=== PATIENT | female | born 1980 | race Caucasian/White ===

== ENCOUNTER 2017-10-14 17:20 | Outpatient (CLI) | payer OTHER, SELFPAY ==
[2017-10-14 17:46] VITALS: BMI 19.8
[2017-10-14 18:32] LABS: Bacteria 0 SEEN /hpf (None Seen); Mucous, Urine 0 SEEN /hpf (<or=2+); White Blood Cells 0 SEEN /hpf (0-5)
[2017-10-14 18:33] LABS: Color, Urine Yellow (Yellow); Glucose, Dipstick Normal (Normal); Ketone-Dipstick 50 mg/dl (Negative); Leukocyte Esterase-Dipstick Negative /ul (Negative); Nitrite-Dipstick Negative (Negative); Occult Blood-Urine 50 /ul (Negative); Protein-Dipstick Negative (Negative); Urine Bilirubin Dipstick Negative (Negative); Urine Clarity Cloudy (Clear); Urine Urobilinogen Normal (Normal)
[2017-10-14 18:42] LABS: Red Blood Cells-Urine 0-5 SEEN /hpf (0-5); Squamous Epithelial Cells - UA 10-25 SEEN /hpf (5-10); Transitional Epithelial - Ur 0-5 SEEN /hpf (0-5)
--- NOTE | 2017-10-15 08:09 | OB.TRI.NOTE ---
History of Present Illness Date of Service: 10/14/17 Was patient seen by the physician?: No Reason For Visit: SPOTTING Date of Service: 10/14/17 Final MIC: 12/26/17 Final MIC Source: US <20 weeks Gestational age: 29 Weeks and 5 Days History of Present Illness: 37 yo [id number] female at 29 5/7 wk EGA with cough, URI. Called to report light spotting. H/O term C section after pushing 4 hrs. Pt given option of pelvic exam and sono in ofc or may come to L and D to check baby . Opted to come in for check and to r/o UTI. Home Medications Medication Instructions Recorded Vits [Prenatabs FA] 1 tablet PO DAILY 08/06/15 Allergies No Known Allergies Allergy (Verified 10/14/17 17:47) Physical Exam Vitals: UA negative. Sp Gr 1.005. 50 Occlut blood . NST - FHR Rate Baby A Baseline: 130-140 with avg variability. Accels to 160-170s Variability:: Moderate Accelerations:: 15 x 15 Decelerations:: None NST Reactive:: Yes, Appropriate for gestational age FHR Category:: Category I Uterine Activity:: irritability, rare UC Impression/Plan 29 5/7 wk , spotting. Likely friable cervix. UA neg except for scant micro hematuria Rest, tylenol prn for discomfort Call ofc as planned for sono and pelvic exam prn.
== END 2017-10-14 18:30 | disposition home or self-care (01) ==
LOC: WPOUT 17:41 → WP 17:42
PROVIDERS: Family Provider Nurse Practitioner; PCP Nurse Practitioner; Visit Provider Obstetrics & Gynecology
DX: O09.523 Supervision of elderly multigravida, third trimester (principal); O26.853 Spotting complicating pregnancy, third trimester; R31.9 Hematuria, unspecified; O99.513 Diseases of the respiratory system complicating pregnancy, third trimester; J06.9 Acute upper respiratory infection, unspecified; O34.219 Maternal care for unspecified type scar from previous cesarean delivery; Z3A.29 29 weeks gestation of pregnancy
CPT/HCPCS: 59025; 59050; 81001; 87086; 87088; 99218; G0378

== ENCOUNTER 2017-12-19 05:45 | Inpatient (IN) | payer OTHER, SELFPAY ==
[2017-12-18 13:30] VITALS: BMI 26.8
[2017-12-18 13:53] VITALS: BMI 28.2
[2017-12-18 14:15] LABS: Absolute Neutrophil Count 7.1 X10^3/uL (2.0-7.7); Basophil# 0.01 X10^3/uL; Basophil% 0.1 % (0-1); Eosinophil# 0.07 X10^3/uL; Eosinophils% 0.8 % (0-5); Hematocrit 33.8 % (37-47); Hemoglobin 11.7 g/dl (12.0-15.0); Lymphocyte % 16.2 % (19-41); Mean Corp Hgb Conc 34.6 g/gl (32-36); Mean Corpuscular Hgb 31.1 pg (27.0-32.0); Mean Corpuscular Volume 89.9 fL (81-99); Monocyte# 0.54 X10^3/uL; Monocyte% 5.8 % (0-10); Neutrophil # 7.12 X10^3/uL (2.7-7.7); Neutrophil % 76.9 % (47-70); Platelet Count 179 K/mm3 (150-450); RBC Distribution Width CV 13.1 % (11.6-14.6); RBC Distribution Width SD 41.9 fl (35.1-43.9); Red Blood Count 3.76 M/mm3 (4.2-5.4); White Blood Count 9.3 K/mm3 (4.4-11.0)
[2017-12-18 14:16] LABS: POSITIVE COUNT NO; POSITIVE DIFFERENTIAL NO; POSITIVE MORPHOLOGY NO
[2017-12-18 14:20] LABS: Prothrombin Time (Protime)PT. 13.6 SECONDS (11.7-14.9)
[2017-12-19] VITALS (22 sets, daily range): BP systolic 105–137; BP diastolic 59–78; PULSE 61–96; RESP 16–18; TEMP 36.2–36.7; O2SAT 95–100
--- NOTE | 2017-12-19 | FALS_PTH ---
PATIENT: LAZARO KIM LOC: [facility] U#:[id number] AGE/SX: 37/F ROOM: WP004 RE12/19/[address]: Dr. Kathrin Cho MD : 1980 BED: 1 DIS: 12/21/2017 SPEC #: [id number] RECD: 12/19/17 14:34 STATUS: TYLER REGerardo #: [id number] RUDY: 12/19/17 00:[address]: Kathrin Hicks DEPT: SURGICAL PATHOLOGY RECD BY: Andrew Vaughan ENTERED: 12/19/17 14:34 SP TYPE: FALL TUBES OTHR DR: Natasha Ambriz, BACON STRINGER-C Tissues: Fallopian tube Procedures: Surgery Specimen Level II HEADER OPERATION: Tubal ligation PRE-OP DIAGNOSIS: Desires elective sterilization TISSUE SUBMITTED: Fallopian tubes, right tube and left tubal segment MICROSCOPIC DIAGNOSIS Right fallopian tube and left tube segment, tubal ligation: Right fallopian tube including fimbrial end, no pathologic diagnosis. Completely transected segment of left fallopian tube, no pathologic diagnosis. ODILON:padmini 12/20/17 MICROSCOPIC DESCRIPTION Slides are reviewed. GROSS DESCRIPTION Received is one container labeled with the patient's name and not further designated. As per requisition, the specimen says right tube and left tube segment. The left tube segment shows a suture and measures 1.7 cm in length and 0.7 cm in diameter. The fimbrial end is not identified in this segment. The right tube measures 5.5 cm in length and 0.8 cm in diameter. The fimbrial end is identified. Sections reveal unremarkable cut surfaces. The left tube will be sectioned at the time of embedding. Utility Lineman sections are submitted in two cassettes as follows: 1 - right tube, 2 - left tube segment, entirely submitted. / ODILON:padmini 12/19/17 TC:4 CPT: 57652 x2
[2017-12-19] MEDS: Lactated Ringers 1,000 ML 999 ML IV (06:15)
[2017-12-19] MEDS: Sodium Citrate/Citric Acid 30 ML UDC PO (07:13)
[2017-12-19] MEDS: Lactated Ringers 1,000 ML 150 ML IV (07:15)
[2017-12-19] MEDS: Cefazolin 2 GM in 0.9% Normal Saline 100 ML IV (07:24)
[2017-12-19] MEDS: Oxytocin 30 units/NS 500 ml 30 UNITS/500 ML IV.SOLN 167 UNITS IV (07:59)
--- NOTE | 2017-12-19 09:10 | OP.PN_ITS ---
- Problem List (1) 39 weeks gestation of Status: Acute (2) History of section Status: Acute W-Glyhivg-Dpwewjgxf PostOp Date of Procedure: 12/19/17 Primary Surgeon/Physician: Kathrin Shelton, nuclear power plant engineer: Reva Ray Pre-op Diagnosis: Repeat Elective , Desires elective sterilization Post-Op Diagnosis: Repeat Elective , Desires elective sterilization Surgery/Procedure Performed: Repeat low transverse Section, - - Right salpingectomy, left partial salpingectomy Description of Surgical Findings:: abundant anterior wall abdominal adhesions and right adnexal adhesions Estimated Blood Loss: 800 Specimens Removed: Right tube, left tubal segment to pathology Drain: Townsend to straight drain Type of Anesthesia: Spinal - Admit VTE Documentation VTE Present on Admission: No VTE Mechan Device Prophylaxis: SCD's VTE Pharm Prophylaxis ordered?: No
--- NOTE | 2017-12-19 09:10 | PCM.OB.CSR ---
- Problem List (1) 39 weeks gestation of Status: Acute (2) History of section Status: Acute Delivery Classification: Stat Final MIC: 12/26/17 Final MIC Source: US <20 weeks Gestational age: 39 Weeks and 0 Days Indications: Ms. Richard is a 37-year-old 3 para 2001 with history of 2 prior sections presenting for scheduled repeat . She was suboptimal candidate for trial of labor. She requested sterilization procedure. Risks, benefits, indications of procedures were reviewed at length. She desired to proceed. Indications for : Repeat Elective , Desires elective sterilization Description of Procedure: The patient was taken to the operating room and spinal analgesia was administered. She is placed in a dorsal supine position with left lateral tilt. The perineum and abdomen were prepped and draped in sterile fashion. And the spinal was found to be adequate. A Pfannenstiel incision was made using a scalpel and brought down to incise the subcutaneous tissue and rectus fascia at the midline. Subcutaneous tissue was bluntly dissected off the fascia laterally. The fascial incision was dissected laterally and cephalad using curved Villagomez scissors. The superior leaflet of the rectus fascia was grasped using Sawyer clamps and bluntly dissected and sharply dissected from the underlying rectus muscle. In a similar fashion the inferior rectus fascia was dissected from the underlying muscle. The rectus muscles were bluntly at the midline,. The peritoneum was identified and entered [sharply]. Continual incision was extended sharply due to adhesive disease. Bladder blade was placed into the upper abdomen. Careful dissection was performed sharply and bluntly with creation of the bladder flap. The fold was incised and a bladder flap created. A low transverse hysterotomy was made using the [Metzenbaum scissors] to level of the membranes. The hysterotomy was extended bluntly cephalad and caudad. The membranes were then ruptured revealing clear fluid. The head was elevated and brought to the level of the hysterotomy. There is tissue dystocia due to the intense right rectus abdominis muscle. The rectus was partially transected using the bandage scissor and the infant subsequently delivered revealing vigorous [male] . The cord was doubly clamped and cut. The was passed to awaiting [nursery personnel]. The placenta was [expressed] from the uterus and appeared intact on inspection. The uterus was exteriorized and cleared of debris. The hysterotomy was then repaired using 0 Vicryl running lock suture. A second imbricating layer was also placed for additional hemostasis. Attention was turned to the right adnexa and the right tube was notably adhered to the uterus with dense fibrous adhesions. Sharp and blunt dissection were performed using the Metzenbaum scissors and Bovie to clearly identify the tubal anatomy. Due to the dissection the fimbrial portion was bleeding thus I decided to proceed with salpingectomy on the side. A right was created in an avascular segment of the mesosalpinx. The proximal and distal mesosalpinx were clamped using the Julisa and the tube was excised. The pedicles were suture-ligated using 2-0 Vicryl and secondarily using 0 plain gut. There is excellent hemostasis. The peritoneum overlying the vessels of the mesosalpinx were exposed thus additional mesosalpinx peritoneal tissue was reapproximated using 2-0 Vicryl. Attention was turned to the left there were fewer adhesions however these were dissected sharply and bluntly. A rent was made an avascular segment of the left mesosalpinx and The proximal distal portion of an ampullary tubal segment was tied using 0 plain gut suture. Approximately 2 cm of intervening tube was excised using Metzenbaum scissors. Tubal ostia were visualized. There is good hemostasis. The bladder removed. The uterus and adnexa were returned to the abdomen. The anterior cul-de-sac was cleared of debris. The peritoneum and rectus muscles were reapproximated using 2-0 Vicryl running suture. The rectus fascia was closed using 0 Vicryl running suture. The subcutaneous tissue was sponge irrigated and small capillary bleeding controlled using the Bovie device. The subcutaneous tissue was reapproximated using 2-0 Vicryl. The skin was closed using 4-0 Monocryl subcuticularly the COMMERCIAL OR INSTITUTIONAL CLEANER under my supervision. This was followed by Cavilon and a Mepilex occlusive dressing was placed over the incision. The fundus was firm. The patient was then transferred to the recovery room without complication. Sponge, instrument, and needle counts were correct ?2. Amniotic Membrane Rupture Type: Artificial Amniotic Fluid Description: Clear Placenta Disposition: [facility] Specimen(s) sent to pathology: Right tube, left tubal segment to pathology Drain: Townsend to straight drain Cord Entanglement: None Cord Vessel Description: 3 Vessels Esitmated Blood Loss (ml): 800 Gender: Male (1 minute): 8 (5 minute): 9 Delayed cord clamping: No Pre-op Antibiotic Given: Ancef 2 grams IV x1 Pt instructed on risks of surgery: Bleeding, Anesthesia Risks, Infection, Availability of other non-permanent control options, - - Tubal contraceptive failure Complications: None - Admit VTE Documentation VTE Present on Admission: No VTE Mechan Device Prophylaxis: SCD's VTE Pharm Prophylaxis ordered?: No
--- NOTE | 2017-12-19 09:20 | OP.PCM_ITS ---
- Problem List (1) 39 weeks gestation of Status: Acute (2) History of section Status: Acute Delivery Classification: Stat Final MIC: 12/26/17 Final MIC Source: US <20 weeks Gestational age: 39 Weeks and 0 Days Indications: Ms. Richard is a 37-year-old 3 para 2001 with history of 2 prior sections presenting for scheduled repeat . She was suboptimal candidate for trial of labor. She requested sterilization procedure. Risks, benefits, indications of procedures were reviewed at length. She desired to proceed. Indications for : Repeat Elective , Desires elective sterilization Description of Procedure: The patient was taken to the operating room and spinal analgesia was administered. She is placed in a dorsal supine position with left lateral tilt. The perineum and abdomen were prepped and draped in sterile fashion. And the spinal was found to be adequate. A Pfannenstiel incision was made using a scalpel and brought down to incise the subcutaneous tissue and rectus fascia at the midline. Subcutaneous tissue was bluntly dissected off the fascia laterally. The fascial incision was dissected laterally and cephalad using curved Villagomez scissors. The superior leaflet of the rectus fascia was grasped using Sawyer clamps and bluntly dissected and sharply dissected from the underlying rectus muscle. In a similar fashion the inferior rectus fascia was dissected from the underlying muscle. The rectus muscles were bluntly at the midline,. The peritoneum was identified and entered [sharply] . Continual incision was extended sharply due to adhesive disease. Bladder blade was placed into the upper abdomen. Careful dissection was performed sharply and bluntly with creation of the bladder flap. The fold was incised and a bladder flap created. A low transverse hysterotomy was made using the [ Metzenbaum scissors] to level of the membranes. The hysterotomy was extended bluntly cephalad and caudad. The membranes were then ruptured revealing clear fluid. The head was elevated and brought to the level of the hysterotomy. There is tissue dystocia due to the intense right rectus abdominis muscle. The rectus was partially transected using the bandage scissor and the subsequently delivered revealing vigorous [male] . The cord was doubly clamped and cut. The was passed to awaiting [ nursery personnel]. The placenta was [expressed] from the uterus and appeared intact on inspection. The uterus was exteriorized and cleared of debris. The hysterotomy was then repaired using 0 Vicryl running lock suture. A second imbricating layer was also placed for additional hemostasis. Attention was turned to the right adnexa and the right tube was notably adhered to the uterus with dense fibrous adhesions. Sharp and blunt dissection were performed using the Metzenbaum scissors and Bovie to clearly identify the tubal anatomy. Due to the dissection the fimbrial portion was bleeding thus I decided to proceed with salpingectomy on the side. A right was created in an avascular segment of the mesosalpinx. The proximal and distal mesosalpinx were clamped using the Julisa and the tube was excised. The pedicles were suture-ligated using 2-0 Vicryl and secondarily using 0 plain gut. There is excellent hemostasis. The peritoneum overlying the vessels of the mesosalpinx were exposed thus additional mesosalpinx peritoneal tissue was reapproximated using 2-0 Vicryl. Attention was turned to the left there were fewer adhesions however these were dissected sharply and bluntly. A rent was made an avascular segment of the left mesosalpinx and The proximal distal portion of an ampullary tubal segment was tied using 0 plain gut suture. Approximately 2 cm of intervening tube was excised using Metzenbaum scissors. Tubal ostia were visualized. There is good hemostasis. The bladder removed. The uterus and adnexa were returned to the abdomen. The anterior cul-de-sac was cleared of debris. The peritoneum and rectus muscles were reapproximated using 2-0 Vicryl running suture. The rectus fascia was closed using 0 Vicryl running suture. The subcutaneous tissue was sponge irrigated and small capillary bleeding controlled using the Bovie device. The subcutaneous tissue was reapproximated using 2-0 Vicryl. The skin was closed using 4-0 Monocryl subcuticularly the COMMERCIAL LEASING MANAGER under my supervision. This was followed by Cavilon and a Mepilex occlusive dressing was placed over the incision. The fundus was firm. The patient was then transferred to the recovery room without complication. Sponge, instrument, and needle counts were correct ?2. Amniotic Membrane Rupture Type: Artificial Amniotic Fluid Description: Clear Placenta Disposition: [facility] Specimen(s) sent to pathology: Right tube, left tubal segment to pathology Drain: Townsend to straight drain Cord Entanglement: None Cord Vessel Description: 3 Vessels Esitmated Blood Loss (ml): 800 Infant Gender: Male (1 minute): 8 (5 minute): 9 Delayed cord clamping: No Pre-op Antibiotic Given: Ancef 2 grams IV x1 Pt instructed on risks of surgery: Bleeding, Anesthesia Risks, Infection, Availability of other non-permanent control options, - - Tubal contraceptive failure Complications: None - Admit VTE Documentation VTE Present on Admission: No VTE Mechan Device Prophylaxis: SCD's VTE Pharm Prophylaxis ordered?: No
[2017-12-19] MEDS: Lactated Ringers 1,000 ML 100 ML IV ×2 (09:35→18:48)
[2017-12-19] MEDS: Ondansetron 4 MG/2 ML Vial IV (10:34)
[2017-12-19] MEDS: proMETHazine 25 MG/ML Syringe 12.5 MG IV (13:31)
[2017-12-19 13:58] LABS: Pathology Specimen OB SEE PATHOLOGY REPORT
[2017-12-19] MEDS: Ketorolac 30 MG/ML Syringe IV ×2 (15:10→20:31)
[2017-12-20] VITALS: BP 107/52; PULSE 95; RESP 18; TEMP 36.1; O2SAT 95
[2017-12-20 02:00] VITALS: BP 112/52; PULSE 89; RESP 18; TEMP 36.4; O2SAT 95
[2017-12-20] MEDS: Ketorolac 30 MG/ML Syringe IV ×4 (03:28→21:44)
[2017-12-20 05:14] LABS: Hematocrit 31.6 % (37-47); Hemoglobin 10.6 g/dl (12.0-15.0); Mean Corp Hgb Conc 33.5 g/gl (32-36); Mean Corpuscular Hgb 30.6 pg (27.0-32.0); Mean Corpuscular Volume 91.3 fL (81-99); Platelet Count 146 K/mm3 (150-450); RBC Distribution Width CV 13.5 % (11.6-14.6); RBC Distribution Width SD 44.5 fl (35.1-43.9); Red Blood Count 3.46 M/mm3 (4.2-5.4)
[2017-12-20 05:18] LABS: Scan Indicated on CBC? Y/N NO
[2017-12-20 07:15] VITALS: BP 111/70; PULSE 77; RESP 16; TEMP 36.1; O2SAT 97
[2017-12-20] MEDS: oxyCODONE 5 MG Tablet PO ×4 (08:23→20:33)
--- NOTE | 2017-12-20 08:30 | PCM.PN.OB ---
Subjective: Infant cluster fed overnight. Aby met with pre sales technical consultant yesterday. latching well. Patient is passing flatus. She had nausea and vomiting post-operative, but now resolved. Tolerates a regular diet. She has not yet voided. Objective: avss - Physical Exam General: Alert, Oriented x3, Cooperative, No apparent distress HEENT: Atraumatic, Normocephalic Lungs: Clear to auscultation, Normal air movement Cardiovascular: Regular rate, Regular Rhythm, Normal S1, Normal S2 Abdomen: Bowel Sounds Present, Soft, Non Tender, Non-Distended, - - Fundus firm and nontender at umbilicus, incisional dressing c/d/i, lochia scant Extremities: No edema, No Calf Tenderness Neurological: Neuro grossly intact Psych/Mental Status: Normal Affect, Appropriate, Alert and oriented to time, place, person, mood and affect Vital Signs Temp Pulse Resp BP Pulse Ox 97.3 F L 82 18 110/68 96 12/21/17 13:35 12/21/17 13:35 12/21/17 13:35 12/21/17 13:35 12/21/17 01:50 Oxygen Delivery Method Room Air Weight: 82.9 kg Body Mass Index (BMI) 28.2 Intake and Output for Last 24 Hours 12/20/17 12/21/17 12/22/17 23:59 23:59 23:59 Output Total 1400 / 1400 Balance -1400 / -1400 Medical Necessity - Tobacco Use Smoking Status: Never smoker Assessment/Plan 37yo POD#1 s/p PLTCS doing well. -Rh positive - -Routine postop care
[2017-12-20] MEDS: 0.9% Saline Lock 10 ML Syringe IV ×3 (09:14→21:44)
[2017-12-20] MEDS: Prenatal Vits Tablet 1 TABLET PO (10:07)
[2017-12-20 12:31] VITALS: BP 121/77; PULSE 80; RESP 16; TEMP 36.2; O2SAT 97
[2017-12-20 16:00] VITALS: BP 121/69; PULSE 80; RESP 16; TEMP 36.6; O2SAT 99
[2017-12-20 20:31] VITALS: BP 115/58; PULSE 93; RESP 18; TEMP 36.7; O2SAT 96
[2017-12-20] MEDS: Senna/Docusate Sodium 1 Tablet PO (20:33)
[2017-12-21 01:50] VITALS: BP 110/66; PULSE 71; RESP 18; TEMP 36.6; O2SAT 96
[2017-12-21] MEDS: Ketorolac 30 MG/ML Syringe IV ×2 (03:48→09:26)
[2017-12-21] MEDS: 0.9% Saline Lock 10 ML Syringe IV ×2 (03:48→09:25)
[2017-12-21] MEDS: oxyCODONE 5 MG Tablet PO ×3 (05:30→12:26)
[2017-12-21 08:30] VITALS: BP 114/68; PULSE 79; RESP 20; TEMP 36.3
--- NOTE | 2017-12-21 08:45 | PCM.PN.OB ---
Subjective: continues to nurse well. Aby has no complaints. She is sore, but pain is manageable with Oxycodone. Passing flatus, no bowel movement yet. She looks forward to going home. Objective: AVSS - Physical Exam General: Alert, Oriented x3, Cooperative, No apparent distress HEENT: Atraumatic, Normocephalic Lungs: Normal air movement Cardiovascular: Regular rate, Regular Rhythm Abdomen: Bowel Sounds Present, Soft, Non Tender, Non-Distended, - - Fundus firm and nontender, incisional dressing c/d/i Extremities: No edema, No Calf Tenderness Neurological: Neuro grossly intact Psych/Mental Status: Normal Affect, Appropriate, Alert and oriented to time, place, person, mood and affect Vital Signs Temp Pulse Resp BP Pulse Ox 97.3 F L 82 18 110/68 96 12/21/17 13:35 12/21/17 13:35 12/21/17 13:35 12/21/17 13:35 12/21/17 01:50 Oxygen Delivery Method Room Air Weight: 82.9 kg Body Mass Index (BMI) 28.2 Intake and Output for Last 24 Hours 12/20/17 12/21/17 12/22/17 23:59 23:59 23:59 Output Total 1400 / 1400 Balance -1400 / -1400 Medical Necessity - Tobacco Use Smoking Status: Never smoker Assessment/Plan 37yo POD#2 s/p PLTCS doing well. -Rh positive - -D/c Home today
[2017-12-21] MEDS: Senna/Docusate Sodium 1 Tablet PO (09:27)
[2017-12-21] MEDS: Prenatal Vits Tablet 1 TABLET PO (09:28)
--- NOTE | 2017-12-21 10:13 | DCINST_ITS ---
Discharge Diet: No Restrictions Discharge Activity: Return to Normal Activity, May not drive while taking narcotic pain medications., May Shower May resume sexual activity in: 6 weeks Lifting Restrictions: 10 lb Call your doctor if your incision/area has: Continuous Slow Oozing, Sudden Increased Bleeding, Increased Pain/ Swelling, Increased Redness, Foul Smelling Discharge Call your doctor if you observe: Fever of 101 or Higher, Inability to urinate, Inability to have a bowel movement, Using more than one pad per hour, Shortness of breath, Chest pain, Calf discomfort, Uncontrolled pain Suture Line Care: Avoid Pulling/Pushing Remove Dressing in (days):: 3 Cleanse incision/area with: Soap & Water Additional Instructions: If you experience any of the following, contact your healthcare provider. * Bleeding that soaks a pad every hour for 2 hours * Fever 100.4 or higher * Unrelieved incision or abdominal pain * Swelling, redness, discharge or bleeding from your incision or episiotomy site * Your incision begins to separate * Problems urinating (including inability to urinate or burning while urinating) . * Visual changes * Severe headache * Flu-like symptoms * Pain or redness in one of both of your breasts * Pain, warmth, tenderness or swelling in your legs, especially the calf area * Frequent nausea and vomiting * Symptoms of depression or anxiety If you experience any of the following, call 911 or go to the nearest Emergency Room. * Chest pain * Problems breathing * Seizure activity * Partial or complete paralysis of a body part, slurred speech, weakness or drooping of the face, or a sudden inability to walk or hold your balance Allergies/Adverse Reactions: Allergies No Known Allergies Allergy (Verified 12/19/17 06:06) Medications to take at Discharge Vits [Prenatabs FA ] 1 tablet PO DAILY 08/06/15 Docusate Sodium [Colace] 100 mg PO BID PRN PRN #60 cap 12/21/17 Ibuprofen 800 mg PO TID PRN #30 tab 12/21/17 Oxycodone [Oxyir] 5 - 10 mg PO Q4H PRN PRN 3 Days #28 tablet 12/21/17 The following prescriptions were given: Oxycodone [Oxyir] 5 - 10 mg PO Q4H PRN PRN 3 Days #28 tablet PRN Reason: Mod-Severe Pain (4-05/29) Docusate Sodium [Colace] 100 mg PO BID PRN PRN #60 cap PRN Reason: Constipation Ibuprofen 800 mg PO TID PRN #30 tab PRN Reason: Pain Follow-Up: Call to make an appointment with your doctor for an incision check in 1-2 weeks. You will also need a 6 week post- follow up appointment. Please Follow Up With: Kathrin Shelton MD When: December 28 at 9:15am Primary Care Physician: Natasha Ambriz [Primary Care Provider] -
[2017-12-21 13:35] VITALS: BP 110/68; PULSE 82; RESP 18; TEMP 36.3
--- NOTE | 2017-12-22 00:56 | PN.OBGYN_ITS ---
Subjective: Infant cluster fed overnight. Aby met with it sales consultant yesterday. latching well. Patient is passing flatus. She had nausea and vomiting post-operative, but now resolved. Tolerates a regular diet. She has not yet voided. Objective: avss - Physical Exam General: Alert, Oriented x3, Cooperative, No apparent distress HEENT: Atraumatic, Normocephalic Lungs: Clear to auscultation, Normal air movement Cardiovascular: Regular rate, Regular Rhythm, Normal S1, Normal S2 Abdomen: Bowel Sounds Present, Soft, Non Tender, Non-Distended, - - Fundus firm and nontender at umbilicus, incisional dressing c/d/i, lochia scant Extremities: No edema, No Calf Tenderness Neurological: Neuro grossly intact Psych/Mental Status: Normal Affect, Appropriate, Alert and oriented to time, place, person, mood and affect Vital Signs Temp Pulse Resp BP Pulse Ox 97.3 F L 82 18 110/68 96 12/21/17 13:35 12/21/17 13:35 12/21/17 13:35 12/21/17 13:35 12/21/17 01:50 Oxygen Delivery Method Room Air Weight: 82.9 kg Body Mass Index (BMI) 28.2 Intake and Output for Last 24 Hours 12/20/17 12/21/17 12/22/17 23:59 23:59 23:59 Output Total 1400 / 1400 Balance -1400 / -1400 Medical Necessity - Tobacco Use Smoking Status: Never smoker Assessment/Plan 37yo POD#1 s/p PLTCS doing well. -Rh positive - -Routine postop care
--- NOTE | 2017-12-22 00:57 | PCM.DC.SUM ---
Discharge Date and Diagnosis Date of Admission: 12/19/17 Date of Discharge: 12/21/17 Hospital Course and Treatment Operations: - - Low transverse section, right salpingectomy, left partial salpingectomy Procedures: None Summary of Care Provided: The patient is a 37 year old F 3 para 2001 with history of two prior Cesaean sections admitted at 39 weeks for scheduled repeat section with tubal sterilization. She underwent section with right salpingectomy and left partial salpingectomy. Her post-operative course was unremarkable. She was out of bed, ambulating, passing flatus, tolerating a regular diet and . She was discharged to home on post-operative day #2. Discharge Diet: No Restrictions Discharge Activity: Return to Normal Activity, May not drive while taking narcotic pain medications., May Shower May resume sexual activity in: 6 weeks Call your doctor if your incision/area has: Continuous Slow Oozing, Sudden Increased Bleeding, Increased Pain/ Swelling, Increased Redness, Foul Smelling Discharge Call your doctor if you observe: Fever of 101 or Higher, Inability to urinate, Inability to have a bowel movement, Using more than one pad per hour, Shortness of breath, Chest pain, Calf discomfort, Uncontrolled pain Suture Line Care: Avoid Pulling/Pushing Remove Dressing in (days):: 3 Cleanse incision/area with: Soap & Water Home Medications: Medications to take at Discharge Vits [Prenatabs FA ] 1 tablet PO DAILY 08/06/15 Docusate Sodium [Colace] 100 mg PO BID PRN PRN #60 cap 12/21/17 Ibuprofen 800 mg PO TID PRN #30 tab 12/21/17 Oxycodone [Oxyir] 5 - 10 mg PO Q4H PRN PRN 3 Days #28 tablet 12/21/17 Following Prescrptions Were Given to Patient: Oxycodone [Oxyir] 5 - 10 mg PO Q4H PRN PRN 3 Days #28 tablet PRN Reason: Mod-Severe Pain (4-10/10) Docusate Sodium [Colace] 100 mg PO BID PRN PRN #60 cap PRN Reason: Constipation Ibuprofen 800 mg PO TID PRN #30 tab PRN Reason: Pain Primary Care Physician: Natasha Ambriz [Primary Care Provider] - Please Follow Up With: Kathrin Shelton MD When: December 28 at 9:15am Medical Necessity - Tobacco Use Smoking Status: Never smoker Meaningful Use Info Meaningful Use Diagnoses (Choose all that apply): None applicable
== END 2017-12-21 13:35 | disposition home or self-care (01) | DRG 766 ==
PROVIDERS: Admitting Provider Obstetrics & Gynecology; Family Provider Nurse Practitioner; PCP Nurse Practitioner; Visit Provider Obstetrics & Gynecology
PROC: 10D00Z1 Extraction of Products of Conception, Low, Open Approach (ICD-10-PCS; CPT 59514; principal; 2017-12-19 07:15)
DX: O34.219 Maternal care for unspecified type scar from previous cesarean delivery (principal); Z30.2 Encounter for sterilization; Z3A.39 39 weeks gestation of pregnancy; Z37.0 Single live birth
CPT/HCPCS: 85025; 85027; 85610; 85730; 86850; 86900; 88302; 94762; 99218; J7120; A4216; G0378; J2405

== ENCOUNTER 2017-12-24 14:00 | Outpatient (CLI) | payer OTHER, SELFPAY | END 2017-12-24 14:15 | disposition home or self-care (01) | LOC: WPOUT 14:14 → WP 14:14 | PROVIDERS: Family Provider Nurse Practitioner; PCP Nurse Practitioner; Visit Provider Obstetrics & Gynecology | DX: Z39.1 Encounter for care and examination of lactating mother (principal) | CPT/HCPCS: 96152 ==

== ENCOUNTER → 2019-05-01 10:57 | Outpatient (CLI) | payer OTHER, SELFPAY ==
[2017-12-18 13:53] VITALS: BMI 28.2
--- NOTE | 2019-05-01 11:04 | RAD_ITS ---
STUDY: X-RAY CHEST REASON FOR EXAM: Female, 38 years old. Chest pain TECHNIQUE: PA and lateral views of the chest. COMPARISON: 10/05/2015 FINDINGS: The lungs are clear and expanded. There is no demonstrated pleural abnormality. Normal size heart. Normal mediastinum and zaid. Normal visualized pulmonary arteries. Normal visualized aortic arch and descending thoracic aorta. Normal visualized thoracic spine. Normal visualized ribs, clavicles, and shoulders. There is no demonstrated abnormality of the visualized soft tissue structures of the upper abdomen. RAD/Chest PA and Lateral IMPRESSION: Normal x-ray examination of the chest. Electronically Signed: Wander Vogel MD at 11:27 EDT Tel , Service support ,
== END ==
PROVIDERS: Family Provider Nurse Practitioner; PCP Nurse Practitioner; Referring Provider Nurse Practitioner Gerontology; Visit Provider Nurse Practitioner Gerontology
DX: R07.89 Other chest pain (principal)
CPT/HCPCS: 71046

== ENCOUNTER → 2020-08-03 13:49 | Outpatient (CLI) | payer OTHER, SELFPAY ==
--- NOTE | 2020-08-03 13:56 | CT_ITS ---
STUDY: CT ABDOMEN AND PELVIS WITH CONTRAST REASON FOR EXAM: Female, 40 years old. POSSIBLE UTERINE FISTULA. ABNORMAL DISCHARGE. 3 C-SECTIONS. DELAYS THROUGH PELVIS RADIATION DOSAGE (If Supplied By Facility): CTDIvol = ( 14.63 ) mGy, DLP = ( 882.39 ) mGycm TECHNIQUE: Transaxial images were obtained from the dome of the diaphragm to the symphysis pubis with oral contrast. Oral and amp; IV Readi-CAT and amp; 100mL Isovue-300 was administered. Sagittal and coronal images were reconstructed. Individualized dose optimization techniques were used for this CT. COMPARISON: None. FINDINGS: The visualized lung bases are unremarkable. The visualized portions of the heart are within normal limits. Normal liver. Normal gallbladder and extrahepatic biliary system. Normal spleen. Normal pancreas. Normal bilateral adrenal glands. Normal right kidney. Normal left kidney. Normal visualized stomach. Normal small intestine. Normal colon. The appendix is visualized and appears normal. Normal abdominal aorta. Normal inferior vena cava. Normal retroperitoneum. Normal urinary bladder. There is a small umbilical hernia containing fat. Normal osseous structures. CT/Abdomen/Pelvis WITH Contrast IMPRESSION: Normal enhanced CT of the abdomen and pelvis. Electronically Signed: Chidi Castillo, at 14:40 EST , Service support ,
== END ==
PROVIDERS: PCP Nurse Practitioner; Referring Provider Obstetrics & Gynecology; Visit Provider Obstetrics & Gynecology
DX: N93.8 Other specified abnormal uterine and vaginal bleeding (principal); N82.4 Other female intestinal-genital tract fistulae; N76.1 Subacute and chronic vaginitis
CPT/HCPCS: 74177

== ENCOUNTER 2021-10-06 10:16 | Outpatient (CLI) | payer OTHER, SELFPAY ==
--- NOTE | 2021-10-06 10:26 | MRI_ITS ---
STUDY: MRI RIGHT HAND WITH AND WITHOUT CONTRAST (ATTENTION THIRD FINGER) REASON FOR EXAM: Painful mass under the nailbed of the right middle finger for 2 years, evaluate for glomus tumor. TECHNIQUE: Standardized fat and water weighted pulse sequences were obtained in all 3 orthogonal planes before and after intravenous administration of 13 mL of Dotarem. COMPARISON: None. FINDINGS: There is a small pressure erosion of the dorsal aspect of the ungual tuft of the third distal phalanx (T1 sagittal image 6; T1 coronal image 9). Normal proximal and middle phalanges of the third digit and visualized distal third metacarpal. Normal flexor and extensor tendons of the third digit. Normal third metacarpophalangeal joint. Normal third proximal and distal phalanges. There is a small soft tissue mass at the dorsal distal aspect of the third finger measuring approximately 0.35 x 0.35 x 0.5 cm (AP x transverse x length). There is increased signal in the mass on inversion recovery sequences (inversion recovery coronal image 10) and intense contrast enhancement (postcontrast T1 sagittal image 6). MRI/Upper Ext No Joint W/WO Cont IMPRESSION: Small soft tissue mass at the dorsal distal aspect of the third finger with small pressure erosion of the dorsal aspect of the ungual tuft, glomus tumor is a leading differential consideration. Electronically Signed: Vikash Lawrence MD at 12:29 EST ,
== END 2021-10-06 23:59 | disposition home or self-care (01) ==
PROVIDERS: PCP Nurse Practitioner; Visit Provider Orthopaedic Surgery
DX: R22.31 Localized swelling, mass and lump, right upper limb (principal)
CPT/HCPCS: 73220; A9575; A4216

== ENCOUNTER 2024-05-29 06:08 | Emergency (ER) | payer OTHER, SELFPAY ==
[2024-05-29 06:08] VITALS: BP 127/89; PULSE 85; RESP 16; TEMP 36.6; O2SAT 100; BMI 21.7
[2024-05-29 06:12] VITALS: BP 127/89; PULSE 79; RESP 18; TEMP 36.6; O2SAT 100
--- NOTE | 2024-05-29 06:24 | CT_ITS ---
STUDY: CT ABDOMEN AND PELVIS WITH CONTRAST - URINARY TRACT REASON FOR EXAM: Female, 44 years old. RLQ pain RADIATION DOSAGE (If Supplied By Facility): CTDIvol = ( 10.00 ) mGy, DLP = ( 473.92 ) mGycm TECHNIQUE: IV 100mL Isovue-300 was administered. Transaxial images were obtained from the dome of the diaphragm to the symphysis pubis in the arterial, nephrographic and excretory phases. Multiplanar coronal and sagittal images were reformatted. The protocol utilizes one or more of the following dose reduction techniques: automated exposure control, adjustment of mA and/or kV according to patient size,and/or use of iterative reconstruction technique. COMPARISON: FINDINGS: The visualized lung bases are unremarkable. The visualized portions of the heart are within normal limits. Normal liver. Normal gallbladder and extrahepatic biliary system. Normal spleen. Normal pancreas. Normal bilateral adrenal glands. Normal visualized stomach. Normal small intestine. Normal colon. The appendix is visualized and appears normal. Normal abdominal aorta. No retroperitoneal adenopathy. Normal right kidney. Normal left kidney. Normal urinary bladder. There is small amount of free fluid in the pelvic cul-de-sac may be due to ruptured ovarian cyst. Normal abdominal wall. Normal osseous structures. CT/Abdomen/Pelvis W IV Cont ONLY IMPRESSION: There is small amount of free fluid in the pelvic cul-de-sac may be due to ruptured ovarian cyst. Electronically Signed: Nelda Downs MD at 8:02 EDT ,
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
[2024-05-29] MEDS: 0.9% Normal Saline (1000mL) 1,000 ML 999 ML IV (06:37)
[2024-05-29] MEDS: Piperacil/Tazobactam 3.375 GM in 0.9% Normal Saline (50mL MB+) 50 ML IV (06:37)
[2024-05-29 06:44] LABS: Bacteria 0 SEEN /hpf (None Seen); Mucous, Urine 0 SEEN /hpf (<or=2+); Red Blood Cells-Urine 0 SEEN /hpf (0-5); White Blood Cells 0 SEEN /hpf (0-5)
[2024-05-29 06:47] LABS: Absolute Lymphocyte Count 1.84 X10^3/uL (0.83-4.51); Absolute Neutrophil Count 3.5 X10^3/uL (2.0-7.7); Basophil# 0.03 X10^3/uL; Basophil% 0.5 % (0-1); Eosinophil# 0.06 X10^3/uL; Hematocrit 38.1 % (37-47); Hemoglobin 13.1 g/dL (12.0-15.0); Lymphocyte # 1.84 X10^3/ul (0.83-4.51); Lymphocyte % 31.3 % (19-41); Mean Corp Hgb Conc 34.4 g/dL (32-36); Mean Corpuscular Hgb 30.8 pg (27.0-32.0); Mean Corpuscular Volume 89.6 fL (81-99); Mean Platelet Vol. 10.9 fl (6.2-12.0); Monocyte# 0.43 X10^3/uL; Monocyte% 7.3 % (0-10); NRBC Flagged by Analyzer 0 % (0-5); Neutrophil # 3.51 X10^3/uL (2.7-7.7); Neutrophil % 59.7 % (47-70); Platelet Count 230 K/mm3 (150-450); RBC Distribution Width CV 12.4 % (11.6-14.6); RBC Distribution Width SD 40.7 fl (35.1-43.9); Red Blood Count 4.25 M/mm3 (4.2-5.4); White Blood Count 5.9 K/mm3 (4.4-11.0)
[2024-05-29 06:49] LABS: Color, Urine Yellow (Yellow); Glucose, Dipstick Normal (Normal); Ketone-Dipstick 50 mg/dl (Negative); Leukocyte Esterase-Dipstick Negative /ul (Negative); Nitrite-Dipstick Negative (Negative); Occult Blood-Urine 10 /ul (Negative); Protein-Dipstick 15 mg/dl (Negative); Specific Gravity, Urine 1.025 (1.002-1.030); Urine Bilirubin Dipstick Negative (Negative); Urine Clarity Clear (Clear); Urine Urobilinogen 1 mg/dl (Normal)
[2024-05-29 07:05] LABS: Squamous Epithelial Cells - UA 0-5 SEEN /hpf (5-10)
[2024-05-29 07:07] LABS: AST(SGOT) 8 U/L (15-37); Alanine Aminotransfer ALT/SGPT 14 U/L (13-56); Alkaline Phosphatase 36 U/L (45-117); Anion Gap 8 (5-15); BUN 10 mg/dL (7-18); BUN/Creat Ratio 12.3 RATIO (10-20); Bilirubin, Direct 0.26 mg/dL (0.00-0.30); Calcium,Total 9.1 mg/dL (8.5-10.1); Chloride 107 mmol/L (98-107); Creatinine, Serum 0.81 mg/dL (0.55-1.02); EST Glomerular Filtration Rate 82 mL/min (>60); Est Glom Filt Rate - Afr Amer 99 mL/min (>60); Estimated Creatinine Clearance 87.98 ml/min; Glucose 101 mg/dL (74-106); Lipase 22 U/L (13-75); Potassium 3.4 mmol/L (3.5-5.1); Sodium Level 139 mmol/L (136-145)
[2024-05-29 07:11] LABS: Internal QC Validated? YES +Cl - CLEAR BKGD; Pregnancy, Serum, hCG Quali. NEGATIVE Negative
[2024-05-29 07:12] VITALS: BP 114/76; PULSE 79; RESP 18; TEMP 36.6; O2SAT 100
[2024-05-29 07:16] LABS: Lactic Acid 0.9 mmol/L (0.4-1.9)
[2024-05-29 08:00] VITALS: BP 116/72; PULSE 78; RESP 16; TEMP 36.6; O2SAT 100
[2024-05-29 08:38] VITALS: BP 113/72; PULSE 71; RESP 14; TEMP 36.6; O2SAT 100
== END 2024-05-29 08:43 | disposition home or self-care (01) ==
PROVIDERS: Emergency Provider Emergency Medicine; Visit Provider Emergency Medicine
DX: N83.209 Unspecified ovarian cyst, unspecified side (principal)
CPT/HCPCS: 74177; 80048; 80076; 81001; 83605; 83690; 84703; 85025; 96365; 99283; J7030; Q9967; A4216